=== PATIENT | female | born 1960 | race Caucasian/White ===

== ENCOUNTER 2016-11-07 17:16 | Outpatient (RCR) | payer OTHER ==
[~2016-11-07] VITALS: Ht 167.6 cm; Wt 127.0 kg
[~2016-11-07 17:16] MED LIST: ONDA8TAB9 PO
[2016-11-07] MEDS ORDERED: NS FLUSH 10 ML PRN IV (18:00)
[2016-11-07] MEDS ORDERED: NS FLUSH 3 ML PRN IV (18:00)
[2016-11-07] MEDS ORDERED: TRM50T PO (18:28)
[2016-11-07] MEDS ORDERED: MELO15TA14 PO (18:28)
[2016-11-07] MEDS ORDERED: ATOR20TA PO (18:28)
[2016-11-07] MEDS ORDERED: OMEP20TA33 PO (18:28)
[2016-11-07] MEDS ORDERED: PROP40TA5 PO (18:28)
--- NOTE | 2016-11-07 19:34 | NUR ---
Pt states that she feels like she still has a headache. Rates pain 5/10 which is down from 7/10 but she would prefer to go home and try to sleep and take her migraine medication.
[2016-11-07 19:36] VITALS: BP 163/87
--- NOTE | 2016-11-07 19:38 | NUR ---
Fluids finished @ 1924. IV access D/C'd and pt discharged to home.
== END 2017-02-05 | disposition home or self-care (01) ==
LOC: EDSTATUS 17:18 → EUOP 17:18
PROVIDERS: ATTEND Physician Assistant
DX: E86.0 Dehydration (principal); K52.9 Noninfective gastroenteritis and colitis, unspecified
CPT/HCPCS: 96360; J7030; 36000